=== PATIENT | male | born 1940 | race Caucasian/White ===

== ENCOUNTER 2017-11-05 21:36 | Emergency (ER) | payer MEDICARE, BC ==
[~2017-11-05] VITALS: Ht 167.6 cm; Wt 62.0 kg
[2017-11-05 21:38] VITALS: BP 152/67; PULSE 92; RESP 18; TEMP 98.3; O2SAT 99
[2017-11-05 22:32] VITALS: TEMP 98
[2017-11-05] MEDS ORDERED: RIVA1.5C (22:32)
[2017-11-05] MEDS ORDERED: SERT25TA83 PO (22:32)
[2017-11-05] MEDS ORDERED: SINE25TA PO (22:32)
[2017-11-05] MEDS ORDERED: ASPI-516 CHEW (22:32)
[2017-11-05] MEDS ORDERED: REME30TA PO (22:32)
[2017-11-05] MEDS ORDERED: DIGO0.12 PO (22:32)
[2017-11-05 22:42] VITALS: O2SAT 99
[2017-11-05] MEDS ORDERED: SODIUM CHLORIDE 0.9% FLUSH 10 ML FLUSH IV FLUSH PRN (22:45)
[2017-11-05 23:30] VITALS: BP 151/72; PULSE 84; RESP 18; O2SAT 98
[2017-11-05 23:31] LABS: AUTOMATED NEUTROPHIL # 6.8 TH/MM3 (1.8-7.7); BASOPHIL % 0.4 % (0.0-2.0); EOSINOPHIL # 0.2 TH/MM3 (0-0.4); EOSINOPHIL % 2.3 % (0.0-4.0); HEMATOCRIT 37.3 % (39.0-51.0); LYMPH % 23.5 % (9.0-44.0); LYMPHOCYTE # 2.4 TH/MM3 (1.0-4.8); MEAN CELL VOLUME 91.2 FL (80.0-100.0); MEAN CORPUSCULAR HEMOGLOBIN 31.9 PG (27.0-34.0); MEAN CORPUSCULAR HGB CONC 34.9 % (32.0-36.0); MEAN PLATELET VOLUME 7.8 FL (7.0-11.0); MONO % 6.7 % (0.0-8.0); MONOCYTE # 0.7 TH/MM3 (0-0.9); NEUT % 67.1 % (16.0-70.0); PLATELET COUNT 280 TH/MM3 (150-450); RED BLOOD COUNT 4.09 MIL/MM3 (4.50-5.90); WHITE BLOOD COUNT 10.1 TH/MM3 (4.0-11.0)
[2017-11-05 23:39] LABS: CHLORIDE 106 MEQ/L (98-107); SODIUM (NA) 139 MEQ/L (136-145)
[2017-11-05 23:44] LABS: CALCIUM 8.9 MG/DL (8.5-10.1)
[2017-11-05 23:45] LABS: BLOOD UREA NITROGEN 17 MG/DL (7-18); GLUCOSE,RANDOM 87 MG/DL (74-106)
[2017-11-05 23:48] LABS: ALT (GPT) 14 U/L (12-78); AST (GOT) 27 U/L (15-37); GLOMERULAR FILTRATION RATE 65 ML/MIN (>89)
[2017-11-05 23:49] LABS: TOTAL BILIRUBIN ADULT 0.5 MG/DL (0.2-1.0)
[2017-11-05 23:50] LABS: TOTAL PROTEIN 7.2 GM/DL (6.4-8.2)
[2017-11-05 23:51] LABS: ALKALINE PHOSPHATASE 92 U/L (45-117)
[2017-11-05 23:53] LABS: TROPONIN I LESS THAN 0.02 NG/ML (0.02-0.05)
[2017-11-06] MEDS ORDERED: SODIUM CHLORID 0.9% 500 ML INJ 500 ML IV ONE (00:30)
[2017-11-06 00:46] LABS: BILIRUBIN, URINE NEG (NEG); BLOOD, URINE NEG (NEG); GLUCOSE,URINE NEG (NEG); KETONE, URINE NEG (NEG); NITRITE,URINE NEG (NEG); URINE COLOR YELLOW (YELLW/STRAW); URINE LEUKOCYTE ESTERASE NEG (NEG)
[2017-11-06 00:58] LABS: SQUAMOUS EPITHELIAL CELL URINE 0-5 /hpf (0-5)
[2017-11-06 01:02] VITALS: BP 127/74; PULSE 82; RESP 18; O2SAT 97
--- NOTE | 2017-11-06 01:24 | PD ---
HPI . Altered mental status Chief Complaint: Complaint Time Seen by Provider: 22:11 Travel History International Travel<30 days: No Contact w/Intl Traveler<30days: No Traveled to known affect area: No History of Present Illness HPI 76-year-old male with a history of dementia, Parkinson's disease, with frequent sundowning, was markedly combative and delirious this evening which patient's daughter who is his caregiver notes that this usually happens when he has some source of infection including pneumonia and/or urinary tract infection. Patient is a noncontributory historian [employer] Past Medical History Narrative Medical Past medical history reviewed Atrial Fibrillation: Yes Cardiac Catheterization: Yes Coronary Artery Disease: Yes Diminished Hearing: No Medical other: Yes (traumatic brain injury) Neurologic: Yes Parkinson's Disease: Yes Myocardial Infarction: Yes Tetanus Vaccination: < 5 Years Influenza Vaccination: No Past Surgical History Coronary Stent: Yes Neurologic Surgery: Yes (wilmer holes for TBI) Social History Alcohol Use: No Tobacco Use: No Substance Use: No Allergies-Medications (Allergen,Severity, Reaction): Coded Allergies: zolpidem (Verified Allergy, Intermediate, Psychosis, 11/05/17) Reported Meds & Prescriptions Reported Meds & Active Scripts Active Reported Sertraline (Sertraline HCl) 25 Mg Tab 25 Mg PO DAILY Remeron (Mirtazapine) 30 Mg Tab 30 Mg PO HS Rivastigmine 1.5 Mg Cap 1.5 Mg BIDPC Aspirin 81 Mg Chew 81 Mg CHEW DAILY Digoxin 0.125 Mg Tab 0.125 Mg PO DAILY Sinemet (Carbidopa-Levodopa) 25-100 Mg Tab 1 Tab PO Q8HR Narrative Medication Allergies and medications reviewed Review of Systems ROS Limitations: Altered Mental Status Eyes: No: Visual changes Musculoskeletal: No: Pain Physical Exam Exam Limitations: Altered Mental Status Narrative GENERAL: Awake and confused, no acute distress vital signs afebrile normal and stable SKIN: Warm and dry. Color is normal diaphoresis illness pallor HEAD: Atraumatic. Normocephalic. EYES: Pupils equal and round. No scleral icterus. No injection or drainage. ENT: No nasal bleeding or discharge. Mucous membranes pink and moist. NECK: Trachea midline. No JVD. Supple nontender full range motion CARDIOVASCULAR: Regular rate and rhythm. S1-S2 no murmurs rubs gallops RESPIRATORY: No accessory muscle use. Clear to auscultation. Breath sounds equal bilaterally. GASTROINTESTINAL: Abdomen soft, non-tender, nondistended. Hepatic and splenic margins not palpable. MUSCULOSKELETAL: Extremities without clubbing, cyanosis, or edema. No obvious deformities. NEUROLOGICAL: Awake and alert. Confused baseline, nonverbal. Difficult exam secondary to poor patient comprehension. Mild parkinsonian type tremor bilateral upper extremity PSYCHIATRIC: Difficult exam secondary patient's baseline confusion/dementia Data Data Last Documented VS Vital Signs Date Time Temp Pulse Resp B/P (MAP) Pulse Ox O2 Delivery O2 Flow Rate FiO2 11/06/17 01:02 82 18 127/74 (91) 97 Room Air 11/05/17 22:32 98.0 Orders Orders Electrocardiogram (11/05/17 22:36) Ammonia (11/05/17 22:36) Complete Blood Count With Diff (11/05/17 22:36) Comprehensive Metabolic Panel (11/05/17 22:36) Creatine Kinase (Cpk) (11/05/17 22:36) Troponin I (11/05/17 22:36) Thyroid Stimulating Hormone (11/05/17 22:36) Urinalysis - C+S If Indicated (11/05/17 22:36) Blood Glucose (11/05/17 22:36) Ecg Monitoring (11/05/17 22:36) Iv Access Insert/Monitor (11/05/17 22:36) Oximetry (11/05/17 22:36) Sodium Chloride 0.9% Flush (Ns Flush) (11/05/17 22:45) Sodium Chlorid 0.9% 500 Ml Inj (Ns 500 M (11/06/17 00:30) Chest, Single Ap (11/06/17 ) Labs Laboratory Tests Test 11/05/17 23:10 11/06/17 00:30 White Blood Count 10.1 TH/MM3 Red Blood Count 4.09 MIL/MM3 Hemoglobin 13.0 GM/DL Hematocrit 37.3 % Mean Corpuscular Volume 91.2 FL Mean Corpuscular Hemoglobin 31.9 PG Mean Corpuscular Hemoglobin Concent 34.9 % Red Cell Distribution Width 14.0 % Platelet Count 280 TH/MM3 Mean Platelet Volume 7.8 FL Neutrophils (%) (Auto) 67.1 % Lymphocytes (%) (Auto) 23.5 % Monocytes (%) (Auto) 6.7 % Eosinophils (%) (Auto) 2.3 % Basophils (%) (Auto) 0.4 % Neutrophils # (Auto) 6.8 TH/MM3 Lymphocytes # (Auto) 2.4 TH/MM3 Monocytes # (Auto) 0.7 TH/MM3 Eosinophils # (Auto) 0.2 TH/MM3 Basophils # (Auto) 0.0 TH/MM3 CBC Comment DIFF FINAL Differential Comment Blood Urea Nitrogen 17 MG/DL Creatinine 1.10 MG/DL Random Glucose 87 MG/DL Total Protein 7.2 GM/DL Albumin 4.0 GM/DL Calcium Level 8.9 MG/DL Alkaline Phosphatase 92 U/L Aspartate Amino Transf (AST/SGOT) 27 U/L Alanine Aminotransferase (ALT/SGPT) 14 U/L Total Bilirubin 0.5 MG/DL Sodium Level 139 MEQ/L Potassium Level 4.2 MEQ/L Chloride Level 106 MEQ/L Carbon Dioxide Level 27.0 MEQ/L Anion Gap 6 MEQ/L Estimat Glomerular Filtration Rate 65 ML/MIN Ammonia 12 MCMOL/L Total Creatine Kinase 74 U/L Troponin I LESS THAN 0.02 NG/ML Thyroid Stimulating Hormone 3rd Gen 3.200 uIU/ML Urine Collection Type CLEAN CATCH Urine Color YELLOW Urine Turbidity CLEAR Urine pH 6.0 Urine Specific [place] LESS/EQUAL 1.005 Urine Protein NEG mg/dL Urine Glucose (UA) NEG mg/dL Urine Ketones NEG mg/dL Urine Occult Blood NEG Urine Nitrite NEG Urine Bilirubin NEG Urine Urobilinogen 0.2 MG/DL Urine Leukocyte Esterase NEG Urine Squamous Epithelial Cells 0-5 /hpf Microscopic Urinalysis Comment CULT NOT INDICATED MDM Medical Decision Making Medical Screen Exam Complete: Yes Emergency Medical Condition: Yes Medical Record Reviewed: Yes Differential Diagnosis Altered mental status, urinary tract infection, pneumonia, sundowning Narrative Course Chest x-ray negative for acute infiltrate, patient laboratory workup reviewed, no signs of infection, no acute abnormalities. CT discussed with patient's daughter, agreed, not applicable at this time. Daughters to discuss patient's condition with his neurologist here locally as well as at [facility] in [facility]. Patient currently is not combative and is able to be managed at home as per daughter. Diagnosis Primary Impression: Altered mental status, unspecified Qualified Codes: R41.82 - Altered mental status, unspecified Patient Instructions: Altered Mental Status (ED), General Instructions Additional Instructions: Care as per usual. Follow-up with her neurologist both here locally and at [facility] in [facility]. Return promptly for worsening Disposition: 01 DISCHARGE HOME Condition: Stable Nitin Shaw MD Nov 06, 2017 01:24
--- NOTE | 2017-11-06 01:25 | RADRPT ---
EXAM DATE/TIME: 11/06/2017 01:13 [facility] COMPARISON: No previous studies available for comparison. INDICATIONS : Fever. MEDICAL HISTORY : None. SURGICAL HISTORY : None. ENCOUNTER: Initial ACUITY: 1 day PAIN SCORE: 0/10 LOCATION: Bilateral chest FINDINGS: A single view of the chest demonstrates the lungs to be symmetrically aerated without evidence of mas s, infiltrate or effusion. The cardiomediastinal contours are unremarkable. Osseous structures are intact. CONCLUSION: No focal infiltrates seen. Osvaldo Barrios MD on November 06, 2017 at 1:24 Board Certified Radiologist. This report was verified electronically.
--- NOTE | 2017-11-06 09:07 | EKG ---
Date Performed: 11/05/2017 Time Performed: 22:59:06 PTAGE: 76 years EKG: ATRIAL FIBRILLATION INFERIOR MYOCARDIAL INFARCTION ABNORMAL ECG NO PREVIOUS TRACING DOCTOR: Niranjan Boateng Interpretating Date/Time 11/06/2017 09:05:42
== END 2017-11-06 01:56 | disposition home or self-care (01) ==
LOC: PHED 21:36
DX: R41.82 Altered mental status, unspecified (principal); R94.31 Abnormal electrocardiogram [ECG] [EKG]; G20 Parkinson's disease; F02.81 Dementia in other diseases classified elsewhere, unspecified severity, with behavioral disturbance; I48.91 Unspecified atrial fibrillation; I25.10 Atherosclerotic heart disease of native coronary artery without angina pectoris; I25.2 Old myocardial infarction; Z87.820 Personal history of traumatic brain injury
CPT/HCPCS: 71045; 80053; 81001; 82140; 82550; 84443; 84484; 85025; 93005; 96360; 99285; J7040

== ENCOUNTER 2018-01-17 13:32 | Emergency (ER) | payer MEDICARE, BC ==
[2018-01-17] VITALS (7 sets, daily range): BP systolic 85–125; BP diastolic 46–66; PULSE 78–95; RESP 16–20; TEMP 97.5–97.8; O2SAT 95–98
[~2018-01-17 13:32] MED LIST: ASPI-516 CHEW; DIGO0.12 PO; REME30TA PO; RIVA1.5C; SERT25TA83 PO; SINE25TA PO
[2018-01-17] MEDS ORDERED: SODIUM CHLORIDE 0.9% FLUSH 10 ML FLUSH IVF PRN (14:00)
--- NOTE | 2018-01-17 14:08 | PD ---
HPI . Generalized weakness Chief Complaint: General Weakness Time Seen by Provider: 13:54 Travel History International Travel<30 days: No Contact w/Intl Traveler<30days: No Traveled to known affect area: No History of Present Illness HPI This patient has Parkinson's disease. He is cared for by his adult daughter who is here with him. She states that he has had decreased mental status, increased incoordination and decreased urinary output for the last couple of days. She states that he is usually incontinent of urine but just has not been making any urine for the last 2 days. She states that this has happened to him before and that it is usually secondary to either dehydration or a urinary tract infection. The patient denies any difficulty breathing. He has not had any vomiting or diarrhea. He has had no known fever. Symptoms are mild with no modifying factors. PFSH Past Medical History Hx Anticoagulant Therapy: Yes (ASA) Atrial Fibrillation: Yes Cardiac Catheterization: Yes Cardiovascular Problems: Yes (STENTS X3, [place]) Coronary Artery Disease: Yes Diminished Hearing: No Neurologic: Yes Parkinson's Disease: Yes Myocardial Infarction: Yes Past Surgical History Coronary Stent: Yes Neurologic Surgery: Yes (wilmer holes for TBI) Social History Alcohol Use: No Tobacco Use: No Substance Use: No Allergies-Medications (Allergen,Severity, Reaction): Coded Allergies: zolpidem (Verified Allergy, Intermediate, Psychosis, 01/17/18) Reported Meds & Prescriptions Reported Meds & Active Scripts Active Reported Sertraline (Sertraline HCl) 25 Mg Tab 25 Mg PO DAILY Remeron (Mirtazapine) 30 Mg Tab 30 Mg PO HS Rivastigmine 1.5 Mg Cap 1.5 Mg BIDPC Aspirin 81 Mg Chew 81 Mg CHEW DAILY Digoxin 0.125 Mg Tab 0.125 Mg PO DAILY Sinemet (Carbidopa-Levodopa) 25-100 Mg Tab 1 Tab PO Q8HR Review of Systems Except as stated in HPI: all other systems reviewed are Neg Physical Exam Narrative GENERAL: Patient is awake and alert. SKIN: warm/dry. Normal color and turgor. HEAD: Normocephalic. Atraumatic. EYES: Pupils equal and round. No scleral icterus. No injection or drainage. ENT: No nasal bleeding or discharge. Mucous membranes pink and moist. NECK: Trachea midline. Full range of motion without pain.. CARDIOVASCULAR: Regular rate and rhythm. Heart sounds are normal. RESPIRATORY: No accessory muscle use. Clear to auscultation. Breath sounds equal bilaterally. GASTROINTESTINAL: Abdomen soft. Nontender. Bowel sounds present. Nondistended. MUSCULOSKELETAL: No obvious deformities. NEUROLOGICAL: Awake and alert. No obvious cranial nerve deficits. Positive tremors. Motor grossly within normal limits. Normal speech. PSYCHIATRIC: Appropriate mood and affect; insight and judgment normal. Data Data Last Documented VS Vital Signs Date Time Temp Pulse Resp B/P (MAP) Pulse Ox O2 Delivery O2 Flow Rate FiO2 01/17/18 14:41 97.5 78 20 94/46 (62) 98 Room Air Orders Orders Electrocardiogram (01/17/18 13:55) Complete Blood Count With Diff (01/17/18 13:55) Comprehensive Metabolic Panel (01/17/18 13:55) Magnesium (Mg) (01/17/18 13:55) Troponin I (01/17/18 13:55) Urinalysis - C+S If Indicated (01/17/18 13:55) Ecg Monitoring (01/17/18 13:55) Iv Access Insert/Monitor (01/17/18 13:55) Oximetry (01/17/18 13:55) Sodium Chloride 0.9% Flush (Ns Flush) (01/17/18 14:00) Cath For Specimen (01/17/18 13:55) Sodium Chlor 0.9% 1000 Ml Inj (Ns 1000 M (01/17/18 14:15) Labs Laboratory Tests Test 01/17/18 14:25 White Blood Count 10.1 TH/MM3 Red Blood Count 4.19 MIL/MM3 Hemoglobin 13.1 GM/DL Hematocrit 38.3 % Mean Corpuscular Volume 91.4 FL Mean Corpuscular Hemoglobin 31.2 PG Mean Corpuscular Hemoglobin Concent 34.1 % Red Cell Distribution Width 13.1 % Platelet Count 321 TH/MM3 Mean Platelet Volume 8.3 FL Neutrophils (%) (Auto) 74.5 % Lymphocytes (%) (Auto) 17.2 % Monocytes (%) (Auto) 6.5 % Eosinophils (%) (Auto) 1.3 % Basophils (%) (Auto) 0.5 % Neutrophils # (Auto) 7.5 TH/MM3 Lymphocytes # (Auto) 1.7 TH/MM3 Monocytes # (Auto) 0.7 TH/MM3 Eosinophils # (Auto) 0.1 TH/MM3 Basophils # (Auto) 0.1 TH/MM3 CBC Comment DIFF FINAL Differential Comment MDM Medical Decision Making Medical Screen Exam Complete: Yes Emergency Medical Condition: Yes Interpretation(s) EKG shows atrial fibrillation with a controlled ventricular rate Differential Diagnosis Differential diagnosis of weakness includes but is not limited to infection, CVA , electrolyte disturbance, renal failure, hypoglycemia Narrative Course This patient presents with weakness. His daughter is concerned that he has either a urinary tract infection or dehydration. She does report decreased urinary output for the last couple of days. He will be treated with IV fluids. Basic labs and urinalysis will be checked. CBC Diagram 01/17/18 14:25 His care is being signed out to the oncoming physician pending his CMP and UA. Diagnosis Primary Impression: Weakness Condition: Stable Violeta Rashid MD January 17, 2018 14:08
[2018-01-17] MEDS ORDERED: SODIUM CHLOR 0.9% 1000 ML INJ 1,000 ML IV ONE (14:15)
[2018-01-17 14:38] LABS: AUTOMATED NEUTROPHIL # 7.5 TH/MM3 (1.8-7.7); BASOPHIL # 0.1 TH/MM3 (0-0.2); BASOPHIL % 0.5 % (0.0-2.0); EOSINOPHIL # 0.1 TH/MM3 (0-0.4); EOSINOPHIL % 1.3 % (0.0-4.0); HEMATOCRIT 38.3 % (39.0-51.0); HEMOGLOBIN 13.1 GM/DL (13.0-17.0); LYMPH % 17.2 % (9.0-44.0); LYMPHOCYTE # 1.7 TH/MM3 (1.0-4.8); MEAN CELL VOLUME 91.4 FL (80.0-100.0); MEAN CORPUSCULAR HEMOGLOBIN 31.2 PG (27.0-34.0); MEAN CORPUSCULAR HGB CONC 34.1 % (32.0-36.0); MEAN PLATELET VOLUME 8.3 FL (7.0-11.0); MONO % 6.5 % (0.0-8.0); MONOCYTE # 0.7 TH/MM3 (0-0.9); NEUT % 74.5 % (16.0-70.0); PLATELET COUNT 321 TH/MM3 (150-450); RED BLOOD COUNT 4.19 MIL/MM3 (4.50-5.90); RED CELL DISTRIBUTION WIDTH 13.1 % (11.6-17.2); WHITE BLOOD COUNT 10.1 TH/MM3 (4.0-11.0)
[2018-01-17 14:59] LABS: CHLORIDE 109 MEQ/L (98-107); SODIUM (NA) 142 MEQ/L (136-145)
[2018-01-17 15:03] LABS: ALBUMIN 3.9 GM/DL (3.4-5.0); BICARBONATE 25.2 MEQ/L (21.0-32.0); BLOOD UREA NITROGEN 22 MG/DL (7-18); CALCIUM 8.9 MG/DL (8.5-10.1); GLUCOSE,RANDOM 97 MG/DL (74-106); MAGNESIUM 2.3 MG/DL (1.5-2.5)
[2018-01-17 15:04] LABS: BILIRUBIN, URINE NEG (NEG); BLOOD, URINE NEG (NEG); GLUCOSE,URINE NEG (NEG); KETONE, URINE 15 mg/dL (NEG); NITRITE,URINE NEG (NEG); PH, URINE 5.5 (5.0-8.5); URINE COLOR YELLOW (YELLW/STRAW); URINE LEUKOCYTE ESTERASE NEG (NEG)
[2018-01-17 15:06] LABS: ALT (GPT) 13 U/L (12-78); AST (GOT) 21 U/L (15-37); GLOMERULAR FILTRATION RATE 65 ML/MIN (>89)
[2018-01-17 15:08] LABS: TOTAL BILIRUBIN ADULT 0.8 MG/DL (0.2-1.0); TOTAL PROTEIN 6.9 GM/DL (6.4-8.2)
[2018-01-17 15:09] LABS: ALKALINE PHOSPHATASE 89 U/L (45-117)
[2018-01-17 15:11] LABS: TROPONIN I LESS THAN 0.02 NG/ML (0.02-0.05)
[2018-01-17 15:26] LABS: RBC, URINE 0-3 /hpf (0-3); SQUAMOUS EPITHELIAL CELL URINE 0-5 /hpf (0-5)
[2018-01-17] MEDS ORDERED: CARB50TA3 PO (15:47)
[2018-01-17] MEDS ORDERED: VITA250T3 PO (15:47)
[2018-01-17] MEDS ORDERED: VITA1000 PO (15:47)
[2018-01-17] MEDS ORDERED: MELA5 PO (15:47)
[2018-01-17] MEDS ORDERED: RIVA1.5C PO (15:47)
[2018-01-17] MEDS ORDERED: CARB25TA9 PO (15:47)
--- NOTE | 2018-01-17 16:00 | PD ---
Physical Exam Narrative GENERAL: SKIN: Warm and dry. HEAD: Atraumatic. Normocephalic. EYES: Pupils equal and round. No scleral icterus. No injection or drainage. ENT: No nasal bleeding or discharge. Mucous membranes pink and moist. NECK: Trachea midline. No JVD. CARDIOVASCULAR: Regular rate and rhythm. RESPIRATORY: No accessory muscle use. Clear to auscultation. Breath sounds equal bilaterally. GASTROINTESTINAL: Abdomen soft, non-tender, nondistended. MUSCULOSKELETAL: Extremities without clubbing, cyanosis, or edema. No obvious deformities. NEUROLOGICAL: Awake and alert. No obvious cranial nerve deficits. Motor grossly within normal limits. Five out of 5 muscle strength in the arms and legs. Normal speech. PSYCHIATRIC: Appropriate mood and affect; insight and judgment normal. Data Data Last Documented VS Vital Signs Date Time Temp Pulse Resp B/P (MAP) Pulse Ox O2 Delivery O2 Flow Rate FiO2 01/17/18 15:35 95 19 110/66 (81) 96 Room Air 01/17/18 14:41 97.5 Orders Orders Electrocardiogram (01/17/18 13:55) Complete Blood Count With Diff (01/17/18 13:55) Comprehensive Metabolic Panel (01/17/18 13:55) Magnesium (Mg) (01/17/18 13:55) Troponin I (01/17/18 13:55) Urinalysis - C+S If Indicated (01/17/18 13:55) Ecg Monitoring (01/17/18 13:55) Iv Access Insert/Monitor (01/17/18 13:55) Oximetry (01/17/18 13:55) Sodium Chloride 0.9% Flush (Ns Flush) (01/17/18 14:00) Cath For Specimen (01/17/18 13:55) Sodium Chlor 0.9% 1000 Ml Inj (Ns 1000 M (01/17/18 14:15) Chest, Pa & Lat (01/17/18 16:00) Ns (Bolus) Inj (01/17/18 16:15) Labs Laboratory Tests Test 01/17/18 14:25 01/17/18 14:50 White Blood Count 10.1 TH/MM3 Red Blood Count 4.19 MIL/MM3 Hemoglobin 13.1 GM/DL Hematocrit 38.3 % Mean Corpuscular Volume 91.4 FL Mean Corpuscular Hemoglobin 31.2 PG Mean Corpuscular Hemoglobin Concent 34.1 % Red Cell Distribution Width 13.1 % Platelet Count 321 TH/MM3 Mean Platelet Volume 8.3 FL Neutrophils (%) (Auto) 74.5 % Lymphocytes (%) (Auto) 17.2 % Monocytes (%) (Auto) 6.5 % Eosinophils (%) (Auto) 1.3 % Basophils (%) (Auto) 0.5 % Neutrophils # (Auto) 7.5 TH/MM3 Lymphocytes # (Auto) 1.7 TH/MM3 Monocytes # (Auto) 0.7 TH/MM3 Eosinophils # (Auto) 0.1 TH/MM3 Basophils # (Auto) 0.1 TH/MM3 CBC Comment DIFF FINAL Differential Comment Blood Urea Nitrogen 22 MG/DL Creatinine 1.10 MG/DL Random Glucose 97 MG/DL Total Protein 6.9 GM/DL Albumin 3.9 GM/DL Calcium Level 8.9 MG/DL Magnesium Level 2.3 MG/DL Alkaline Phosphatase 89 U/L Aspartate Amino Transf (AST/SGOT) 21 U/L Alanine Aminotransferase (ALT/SGPT) 13 U/L Total Bilirubin 0.8 MG/DL Sodium Level 142 MEQ/L Potassium Level 4.5 MEQ/L Chloride Level 109 MEQ/L Carbon Dioxide Level 25.2 MEQ/L Anion Gap 8 MEQ/L Estimat Glomerular Filtration Rate 65 ML/MIN Troponin I LESS THAN 0.02 NG/ML Urine Collection Type CLEAN CATCH Urine Color YELLOW Urine Turbidity CLEAR Urine pH 5.5 Urine Specific [place] GREATER/EQUAL 1.030 Urine Protein TRACE mg/dL Urine Glucose (UA) NEG mg/dL Urine Ketones 15 mg/dL Urine Occult Blood NEG Urine Nitrite NEG Urine Bilirubin NEG Urine Urobilinogen 0.2 MG/DL Urine Leukocyte Esterase NEG Urine RBC 0-3 /hpf Urine WBC 3-5 /hpf Urine Squamous Epithelial Cells 0-5 /hpf Microscopic Urinalysis Comment CULT NOT INDICATED Urine Collection Time 14:50 MDM Medical Record Reviewed: Yes Supervised Visit with CHANCE: No Narrative Course CBC shows no leukocytosis, no anemia, normal platelet count, and no major left shift. Electrolytes are all within normal limits, normal kidney liver functions, and first set of cardiac enzymes negative UA shows very mild ketonuria but without any evidence of UTI. Mild evidence of dehydration was addressed with 1-1/2 L of normal saline given IV. The patient himself looks and appears more at his baseline according to daughter. Discuss all results with patient and daughter at bedside, stated that will await an x-ray, if negative for any infection will be discharged. Daughter and patient were both in agreement. Diagnosis Primary Impression: Weakness Patient Instructions: General Instructions, Weakness (ED) Disposition: 01 DISCHARGE HOME Condition: Stable Clayton Terrazas MD January 17, 2018 16:00
[2018-01-17] MEDS ORDERED: SODIUM CHLORID 0.9% 500 ML INJ 500 ML IV ONE (16:15)
--- NOTE | 2018-01-17 17:34 | RADRPT ---
EXAM DATE/TIME: 01/17/2018 16:52 [facility] COMPARISON: No previous studies available for comparison. INDICATIONS : Cough and weakness. MEDICAL HISTORY : Myocardial infarction. Parkinson's disease. cornonary artery disease. atrial fibrillation. SURGICAL HISTORY : Coronary artery stent. ENCOUNTER: Initial ACUITY: 3 days PAIN SCORE: 0/10 LOCATION: Bilateral chest FINDINGS: Cardiomegaly and patchy left lower lobe airspace disease. Degenerative changes of the spine. CONCLUSION: Left lower lobe airspace disease. Ihsan Pinto MD on January 17, 2018 at 17:31 Board Certified Radiologist. This report was verified electronically.
--- NOTE | 2018-01-18 22:36 | EKG ---
Date Performed: 01/17/2018 Time Performed: 14:31:03 PTAGE: 77 years EKG: ATRIAL FIBRILLATION INFERIOR MYOCARDIAL INFARCTION ABNORMAL ECG PREVIOUS TRACING : 11/05/2017 22.59 Since the previous tracing, no significant change noted DOCTOR: Cristofer Burdick Interpretating Date/Time 01/18/2018 22:34:47
== END 2018-01-17 18:07 | disposition home or self-care (01) ==
LOC: PHED 13:32
DX: R53.1 Weakness (principal); E86.0 Dehydration; R94.31 Abnormal electrocardiogram [ECG] [EKG]; G20 Parkinson's disease; I48.91 Unspecified atrial fibrillation; I25.10 Atherosclerotic heart disease of native coronary artery without angina pectoris; I25.2 Old myocardial infarction; Z95.5 Presence of coronary angioplasty implant and graft
CPT/HCPCS: 71046; 80053; 81001; 83735; 84484; 85025; 93005; 96360; 96361; 99285; J7030; J7040